=== PATIENT | male | born 1995 | race Two or more races ===

== ENCOUNTER 2018-12-04 21:28 | Emergency (ER) | payer SELFPAY ==
[~2018-12-04] VITALS: Ht 175.3 cm; Wt 65.3 kg
[2018-12-04 21:31] VITALS: BP 133/76
--- NOTE | 2018-12-04 21:51 | NUR ---
PT IN HALLWAY, TRIAGED. REFUSED TO BE SEEN BY MD AND GIVE URINE. PT STATED "ILL GO AHEAD AND LEAVE, I DONT WANT TO WAIT FOR A ROOM" PT LEFT. AMBULATORY. VSS. [id number]. -SI -HI.
== END 2018-12-04 21:54 | disposition left against medical advice (07) ==
LOC: ER 21:31
DX: Z53.21 Procedure and treatment not carried out due to patient leaving prior to being seen by health care provider (principal)

== ENCOUNTER 2018-12-05 15:02 | Emergency (ER) | payer SELFPAY ==
--- NOTE | 2018-12-05 15:18 | NUR ---
PT CALLED IN WAITING. NO REPLY
--- NOTE | 2018-12-05 15:29 | NUR ---
PT LEFT W/OUT BEING TRIAGED
== END 2018-12-05 15:29 | disposition left against medical advice (07) ==
LOC: ER 15:02
DX: Z53.21 Procedure and treatment not carried out due to patient leaving prior to being seen by health care provider (principal)